=== PATIENT | male | born 1945 | race Two or more races ===

== ENCOUNTER → 2018-09-24 | Day surgery (SDC) | payer OTHER ==
[2018-09-21 14:50] LABS: Urine Bacteria NONE SEEN /hpf (None Seen); Urine Blood TRACE /uL (Negative); Urine Mucus FEW (None Seen); Urine WBC 1 /hpf (0 - 3)
[2018-09-21 15:00] LABS: Basophils # (auto) 0 uL; Basophils % (auto) 0.4 % (0.0-2.0); Eosinophils # (auto) 0.2 uL; Mean Corpuscular Hgb Conc. 34.1 g/dL (32.0-36.0); Monocytes # (auto) 0.6 uL; Red Blood Cells 4.99 10^6/uL (4.5-5.90)
[2018-09-21 15:06] LABS: BUN/Creatinine Ratio 19.8; Calcium 9.2 mg/dL (8.5-10.1)
[2018-09-21 15:09] LABS: INR 0.95 (0.9-1.15); Partial Thromboplastin Time 27.5 sec (23.78-33.04); Prothrombin Time 10.2 sec (9.27-12.13)
[2018-09-21 15:49] LABS: Hematocrit 46.9 % (41.0-53.0); Lymphocytes # (auto) 1.6 uL; Lymphocytes % (auto) 26.2 % (10.0-50.0); Mean Corpuscular Volume 93.8 fL (80.0-100.0); Monocytes % (auto) 10.2 % (0.0-12.0); Neutrophils # (auto) 3.6 uL; Neutrophils % (auto) 59.2 % (37.0-80.0); Nucleated Red Blood Cells % 0.1 %; Platelet Count (auto) 227 10^3/uL (140-450); Red Cell Distribution Width 13.8 % (11.8-14.3); White Blood Cell 6.1 10^3/uL (4.4-10.8)
[~2018-09-24] VITALS: Ht 175.3 cm; Wt 72.6 kg
[~2018-09-24] MED LIST: ALPR0.5T PO; CIPROFLOXACIN 400MG/200ML 200 ML IV ONE; HYDROmorphone HCL 2 MG/ML VL IV PRN; KETOROLAC TROMETH 30 MG/ML 1ML VIAL IV ONE; METOCLOPRAMIDE HCL 5MG/ml INJ 2ml VIAL IV ONE; MIDAZOLAM HCL 1MG/1ML-2 ML VIAL ONE; ONDANSETRON HCL 4 MG/2 ML VIAL ONE; PROPOFOL 10 MG/ML 20 ML IV ONE; SODIUM CHLORIDE LOCK 10 ML ONE; fentaNYL CITRATE 100 MCG/2 ML VL ONE
[2018-09-24 10:41] VITALS: BP 123/67
== END | disposition home or self-care (01) ==
LOC: SUR 07:38
PROVIDERS: ATTEND Urology
DX: N21.0 Calculus in bladder (principal); G47.00 Insomnia, unspecified; Z90.49 Acquired absence of other specified parts of digestive tract; Z98.49 Cataract extraction status, unspecified eye; Z98.890 Other specified postprocedural states; Z91.013 Allergy to seafood; Z79.899 Other long term (current) drug therapy; Z88.8 Allergy status to other drugs, medicaments and biological substances; Z91.041 Radiographic dye allergy status
CPT/HCPCS: 36415; 52310; 80048; 81001; 85025; 85610; 85730; 87086; 88300; A4338; J0744; J2250; J2405; J2704; J3010